=== PATIENT | female | born 1970 | race American Indian/Alaskan Native ===

== ENCOUNTER 2017-08-08 09:40 | Outpatient (CLI) | payer OTHER ==
--- NOTE | 2017-08-08 11:24 | XRay Report ---
BILATERAL KNEES, 3 VIEWS History: Bilateral knee pain. Findings: Bone mineralization is normal. Minimal, early osteoarthritic changes are identified in both knees. No evidence for fracture, bone lesion or large osteochondral defect. The soft tissues are within normal limits. Impression: Minimal osteoarthritic changes.
== END 2017-08-08 09:41 | disposition home or self-care (01) ==
LOC: XRAY 09:40
PROVIDERS: ATTEND Internal Medicine Hematology & Oncology
DX: M17.0 Bilateral primary osteoarthritis of knee (principal)

== ENCOUNTER 2017-08-17 19:30 | Emergency (ER) | payer OTHER ==
[2017-08-17] MEDS ORDERED: ASPIRIN PO ONE (20:42)
[2017-08-17 21:06] LABS: Basophils % (Auto) 0.4 % (0.0-1.8); Eosinophils # (Auto) 0.2 K/mm3 (0.0-0.4); Eosinophils % (Auto) 1.9 % (0.0-4.3); Hematocrit 39.7 % (30.3-42.9); Hemoglobin 13.6 gm/dl (10.1-14.3); Lymphocytes # (Auto) 2.7 K/mm3 (1.2-5.4); Lymphocytes % (Auto) 33.5 % (13.4-35.0); Mean Corpuscular HGB Conc 34 % (30-34); Mean Corpuscular Hemoglobin 32 pg (28-32); Mean Corpuscular Volume 93 fl (79-97); Monocytes # (Auto) 0.5 K/mm3 (0.0-0.8); Monocytes % (Auto) 6.6 % (0.0-7.3); Platelet Count 306 K/mm3 (140-440); Red Blood Count 4.28 M/mm3 (3.65-5.03); Red Cell Distribution Width 14.2 % (13.2-15.2)
[2017-08-17 21:30] LABS: BUN/Creatinine Ratio 14; Blood Urea Nitrogen 11 mg/dL (7-17); Calcium 8.8 mg/dL (8.4-10.2); Hemolysis Index 8
[2017-08-18] MEDS ORDERED: CATAPRES ONE (01:18)
[2017-08-18] MEDS ORDERED: BABY ASPIRIN ONE (01:18)
[2017-08-18] MEDS ORDERED: PERCOCET 5/325 ONE (01:19)
[2017-08-18] MEDS ORDERED: PERCOCET 5/325 PO ONE (01:23)
[2017-08-18] MEDS ORDERED: CATAPRES PO ONE (01:23)
[2017-08-18] MEDS ORDERED: BABY ASPIRIN PO ONE (01:24)
[2017-08-18 02:39] VITALS: BP 151/91
--- NOTE | 2017-08-18 03:46 | Emergency Department Report ---
ED Chest Pain HPI - General Chief Complaint: Chest Pain Stated Complaint: CP; LT ARM PAIN Time Seen by Provider: 08/18/17 02:37 Source: patient Mode of arrival: Ambulatory Limitations: No Limitations - History of Present Illness Initial Comments: pt. is here with pain in the substernal region and also pain in the epigastric and suprapubic region. The chest pain started a week ago of moderate intensity and nonradiating with no aggravating or relieving factor. The patient's abdominal pain in the epigastric and suprapubic regions started about 2 months ago. it is constant nonradiating with no aggravating or relieving factors. The patient said oncologist is in the process of ordering a CT of the abdomen and pelvis to evaluate her abdominal pain. MD Complaint: chest pain Onset/Timin (week) -: Gradual Onset: during rest Pain Location: substernal Pain Radiation: none Severity: moderate Quality: aching Consistency: constant Improves With: nothing Worsens With: nothing re: nausea Treatments Prior to Arrival: none - Related Data Home Medications Medication Instructions Recorded Confirmed Last Taken Furosemide [Lasix] 40 mg PO DAILY 09/04/13 08/17/17 09/04/13 05:00 cloNIDine [Catapres] 0.1 mg PO TID PRN 09/04/13 09/04/13 09/04/13 05:00 Ativan 1 mg PO BID 08/17/17 08/17/17 Unknown Spironolactone 25 mg PO BID 08/17/17 08/17/17 Unknown traZODone 150 mg PO HS 08/17/17 08/17/17 Unknown Previous Rx's Medication Instructions Recorded Last Taken Type Dicyclomine [Bentyl] 10 mg PO QID PRN #20 capsule 08/18/17 Unknown Rx Omeprazole 20 mg PO DAILY #14 tablet. 08/18/17 Unknown Rx Allergies Allergy/AdvReac Type Severity Reaction Status Date / Time Penicillins Allergy Swelling Verified 09/04/13 12:39 ciprofloxacin [From Cipro] AdvReac Vomiting Verified 08/17/17 20:42 Heart Score - HEART Score History: Slightly suspicious EKG: Normal Age: 45-65 Risk factors: 1-2 risk factors Troponin: < normal limit HEART Score: 2 - Critical Actions Critical Actions: 0-3 pts:0.9-1.7%risk of adverse cardiac event.Candidate for discharge ED Review of Systems ROS: Stated complaint: CP; LT ARM PAIN Other details as noted in HPI Comment: All other systems reviewed and negative ED Past Medical Hx - Past Medical History Hx Hypertension: Yes Hx Congestive Heart Failure: No Hx Diabetes: No Hx Renal Disease: Yes (High protein) Hx of Cancer: Yes (Breast) Hx Psychiatric Treatment: (anxiety, depression) Hx Asthma: No Hx COPD: No - Surgical History Past Surgical History?: Yes Additional Surgical History: Bilateral Mastectomy, Hysterectomy - Social History Smoking Status: Never Smoker Substance Use Type: None - Medications Home Medications: Home Medications Medication Instructions Recorded Confirmed Last Taken Type Furosemide [Lasix] 40 mg PO DAILY 09/04/13 08/17/17 09/04/13 05:00 History cloNIDine [Catapres] 0.1 mg PO TID PRN 09/04/13 09/04/13 09/04/13 05:00 History Ativan 1 mg PO BID 08/17/17 08/17/17 Unknown History Spironolactone 25 mg PO BID 08/17/17 08/17/17 Unknown History traZODone 150 mg PO HS 08/17/17 08/17/17 Unknown History Dicyclomine [Bentyl] 10 mg PO QID PRN #20 capsule 08/18/17 Unknown Rx Omeprazole 20 mg PO DAILY #14 tablet. 08/18/17 Unknown Rx ED Physical Exam - General Limitations: No Limitations General appearance: alert, in no apparent distress - Head Head exam: Present: atraumatic, normocephalic - Eye Eye exam: Present: normal appearance - ENT ENT exam: Present: mucous membranes moist - Neck Neck exam: Present: normal inspection - Respiratory Respiratory exam: Present: normal lung sounds bilaterally. Absent: respiratory distress - Cardiovascular Cardiovascular Exam: Present: regular rate, normal rhythm, other (ttp of sternum ). Absent: systolic murmur, diastolic murmur, rubs, gallop - GI/Abdominal GI/Abdominal exam: Present: soft, tenderness (ttp of the epigastric and suprapubic area), normal bowel sounds - Extremities Exam Extremities exam: Present: normal inspection - Back Exam Back exam: Present: normal inspection - Neurological Exam Neurological exam: Present: alert, oriented X3 - Psychiatric Psychiatric exam: Present: normal affect, normal mood - Skin Skin exam: Present: warm, dry, intact, normal color. Absent: rash ED Course Vital Signs 08/17/17 08/18/17 08/18/17 20:34 01:25 01:26 Temperature 98.6 F 98.7 F Pulse Rate 77 63 63 Respiratory 16 17 Rate Blood Pressure 179/111 181/114 Blood Pressure 181/114 [Right] O2 Sat by Pulse 98 100 Oximetry 08/18/17 02:39 Temperature 97.8 F Pulse Rate 57 L Respiratory 18 Rate Blood Pressure Blood Pressure 151/91 [Right] O2 Sat by Pulse 100 Oximetry GÓMEZ score - Gómez Score Age > 65: (0) No Aspirin use within the Past 7 Days: (0) No 3 or more CAD Risk Factors: (0) No 2 or more Angina events in past 24 hrs: (0) No Known CAD with more than 50% Stenosis: (0) No Elevated Cardiac Markers: (0) No ST Deviation Greater than 0.5mm: (0) No GÓMEZ Score: 0 ED Medical Decision Making - Lab Data Result diagrams: 08/17/17 20:50 08/17/17 20:50 - EKG Data -: EKG Interpreted by Me EKG shows normal: sinus rhythm (normal), axis (normal), intervals (normal ), QRS complexes (normal), ST-T waves (normal) Rate: normal (rate of 74) - Medical Decision Making Dr. Sandoval to treat the patient accordingly if the UA is positive for an infection has agreed with me Critical care attestation.: If time is entered above; I have spent that time in minutes in the direct care of this critically ill patient, excluding procedure time. ED Disposition Clinical Impression: Atypical chest pain, Gastritis Disposition: - TO HOME OR SELFCARE Is pt being admited?: No Does the pt Need Aspirin: No Condition: Stable Instructions: Chest Pain (ED), Gastritis (ED) Prescriptions: Dicyclomine [Bentyl] 10 mg PO QID PRN #20 capsule PRN Reason: Pain Omeprazole 20 mg PO DAILY #14 tablet. Referrals: GERMAIN GELLER DO [Primary Care Provider] - 3-5 Days Time of Disposition: 06:51 Print Language: JORDANIAN
--- NOTE | 2017-08-18 05:51 | Cat Scan Report ---
FINAL REPORT EXAM: CT ABDOMEN PELVIS W CON HISTORY: abdominal pain. TECHNIQUE: CT images are acquired through the Abdomen and Pelvis arterial and delayed phases following intravenous administration of contrast. Transaxial, coronal and sagittal reformations are provided. PRIORS: None FINDINGS: Partially visualized intrathoracic contents are unremarkable. The liver, gallbladder, pancreas, spleen, and adrenal glands are unremarkable. Kidneys show no worrisome lesions, hydronephrosis, or calculi. Urinary bladder is unremarkable. Small and large bowel are normal in caliber. Appendix is normal. No free air, free fluid, or lymphadenopathy identified. Aorta is normal in course and caliber. Superficial soft tissues are unremarkable. No acute or aggressive appearing skeletal findings. IMPRESSION: No acute findings in the abdomen or pelvis.
[2017-08-18] MEDS ORDERED: BENTYL IM ONE (06:45)
[2017-08-18 07:30] LABS: Bilirubin,Urine NEG (Negative); Blood,Urine NEG (Negative); Color,Urine Yellow (Yellow); Hyaline Casts,Urine 1 /LPF; Mucus,Urine FEW /HPF; Protein,Urine <15 mg/dL mg/dL (Negative); Urobilinogen,Urine < 2.0 mg/dL (<2.0)
== END 2017-08-18 09:50 | disposition home or self-care (01) ==
LOC: ED 19:30
DX: K29.70 Gastritis, unspecified, without bleeding (principal); R07.89 Other chest pain; I10 Essential (primary) hypertension; F41.9 Anxiety disorder, unspecified; F32.9 Major depressive disorder, single episode, unspecified; Z90.710 Acquired absence of both cervix and uterus; Z90.13 Acquired absence of bilateral breasts and nipples
CPT/HCPCS: 36415; 74177; 80048; 81001; 83690; 84484; 85025; 93005; 93010; 96372; 99284; J0500; Q9967